=== PATIENT | female | born 1940 | race Caucasian/White ===

== ENCOUNTER 2016-08-18 15:16 | Emergency (ER) | payer OTHER ==
[2016-08-18] MEDS ORDERED: DIPH,PERTUSS(ACELL),TET VAC/PF 0.5 ML DISP.SYRIN IM ONE (17:32)
--- NOTE | 2016-08-18 17:42 | ED Physician Documentation ---
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 [employer] Onset: hours (2) Timing: still present Severity: mild Further Comments: no - ROS CONST: no problems EYES/ENT: none CVS/RESP: none GI/: none MS/SKIN/LYMPH: none NEURO/PSYCH: denies: headache, fainting, dizziness, tingling, numbness, difficulty walking, difficulty with speech, anxiety, depression - PAST HX Past History: other (seizures, thyroid disorder) Other History: none Surgeries/Procedures: cholecystectomy Immunizations: referred to PCP Allergies/Adverse Reactions: Allergies Allergy/AdvReac Type Severity Reaction Status Date / Time No Known Allergies Allergy Verified 08/18/16 16:35 Home Medications: Ambulatory Orders Medication Instructions Recorded Gabapentin 100 mg PO BID av 10/08/12 Phenytoin Sodium Extended 100 mg PO SEE.INSTRUCTIONS #90 av 09/30/13 Calcium Carbonate/Vitamin D3 1 each PO DAILY u2 01/12/14 [Calcium 600 + Vit D Tablet] Levothyroxine Sodium 88 mcg PO DAILY u2 01/12/14 Primidone 125 mg PO BID u2 01/12/14 - SOCIAL HX Smoking History: non-smoker Alcohol Use: none Drug Use: none - FAMILY HX Family History: Yes - VITAL SIGNS Vital Signs: Vital Signs Temp Pulse Resp BP Pulse Ox 98.9 F 67 18 126/70 96 08/18/16 17:49 08/18/16 17:49 08/18/16 17:49 08/18/16 17:49 08/18/16 17:49 - REVIEWED ASSESSMENTS Nursing Assessment Reviewed: Yes Vitals Reviewed: Yes Procedures Wound Location: head Wound Length: 3 cm Wound's Depth, Shape: linear Wound Explored: no foreign body removed Betadine Prep?: No (sure clens) Anesthesia: 1% Lidocaine (with epi) Volume of Anesthetic: 12 cc Wound Debrided: none Wound Repaired With: sutures Suture Size/Type: 6:0 Number of Sutures: 8 Layer Closure?: No Sterile Dressing Applied?: Yes Splint Applied?: No Sling Applied?: No Progress - Results/Orders Results/Orders: no testing ordered - Progress Progress: pt. stable entire time in er Critical Care Note - Critical Care Note Total Time (mins): 0 ED Results Lab/Radiology - Lab Results Lab Results: none ordered - Radiology Radiology Impressions: none ordered - Orders Orders: ED Orders Category Date Time Status DiphYamileth(Acell),Tet Vac/Pf [Adacel] Med 08/18/16 17:32 Discontinued 0.5 ml IM .ONCE ONE General Adult Physical Exam - PHYSICAL EXAM GENERAL APPEARANCE: mild distress EENT: eye inspection normal, ENT inspection normal, pharynx normal, no signs of dehydration, YG, no nystagmus, TM's nml NECK: normal inspection, thyroid normal, supple RESPIRATORY: no resp distress, chest non-tender, breath sounds normal CVS: reg rate & rhythm, heart sounds normal, equal pulses, no murmur, no gallop , PMI nml, no JVD, no friction rub ABDOMEN: soft, no organomegaly, normal bowel sounds, no abdominal bruit, no distension, non-tender BACK: normal inspection, no CVA tenderness SKIN: other (laceration right eyebrow area 3 cm in length) EXTREMITIES: non-tender, normal range of motion, no evidence of injury NEURO: oriented X3, CN's nml as tested, motor nml, sensation nml, mood/affect nml, cognition normal Discharge Clincal Impression: Laceration of face Qualifiers: Encounter type: initial encounter Qualified Code(s): S01.81XA - Laceration without foreign body of other part of head, initial encounter Referrals: Nicholas Arnold MD [Primary Care Provider] - 2 Days Home Medications: Ambulatory Orders Gabapentin 100 mg PO BID av 10/08/12 Phenytoin Sodium Extended 100 mg PO SEE.INSTRUCTIONS #90 av 09/30/13 Calcium Carbonate/Vitamin D3 [Calcium 600 + Vit D Tablet] 1 each PO DAILY u2 Levothyroxine Sodium 88 mcg PO DAILY u2 01/12/14 Primidone 125 mg PO BID u2 01/12/14 Comments: discharged in stable condition with istructions for suture care Condition: Stable Disposition: 01 HOME, SELF-CARE Decision to Admit: NO Decision Time: 17:30
[2016-08-18 17:50] VITALS: BP 126/70
== END 2016-08-18 17:49 | disposition home or self-care (01) ==
LOC: ED 15:16
DX: S01.81XA Laceration without foreign body of other part of head, initial encounter (principal); W19.XXXA Unspecified fall, initial encounter; Y93.9 Activity, unspecified; Y99.9 Unspecified external cause status
CPT/HCPCS: 12002; 90471; 90715; 99284